=== PATIENT | female | born 1960 | race Caucasian/White ===

== ENCOUNTER → 2016-03-16 | Outpatient (CLI) | payer BC, OTHER ==
[2016-03-16 18:44] LABS: ALT/SGPT 51 U/L (12-78); BLOOD UREA NITROGEN 28 mg/dl (7-18); BUN/CREATININE RATIO 19.6 (10-20); CALCIUM 9.5 mg/dl (8.5-10.1); CARBON DIOXIDE 28 mmol/L (21-32); CHLORIDE 106 mmol/L (98-107); CHOLESTEROL 163 mg/dl (0-200); GLUCOSE 104 mg/dl (70-99); POTASSIUM 4.3 mmol/L (3.5-5.1); SODIUM 144 mmol/L (136-145); TRIGLYCERIDES 192 mg/dl (0-150); VERY LOW DENSITY LIPOPROT CALC 38 mg/dl
[2016-03-16 18:47] LABS: ALB/GLOB RATIO 1.1 (0.9-2); ALKALINE PHOSPHATASE 71 U/L (45-117); AST/SGOT 33 U/L (15-37); CHOLESTEROL/HDL RATIO 4.1; HDL CHOLESTEROL 40 mg/dl; LDL CHOLESTEROL CALCULATED 85 mg/dl
[2016-03-17 06:47] LABS: ESTIMATED AVERAGE GLUCOSE 157 mg/dl; HA1C FLAG Normal (Normal)
== END | disposition home or self-care (01) ==
LOC: C.LABSPEC 14:37
PROVIDERS: ATTEND Family Medicine
DX: E11.9 Type 2 diabetes mellitus without complications (principal); I10 Essential (primary) hypertension

== ENCOUNTER → 2016-06-14 | Outpatient (CLI) | payer BC, OTHER ==
[2016-06-14 13:44] LABS: BASO % 0.3 %; BASO ABS # 0.02 K/uL (0-0.2); COMPLETE YES; EOS % 2.2 %; HEMATOCRIT 41.2 % (37-47); IG% 0.3 %; LYMPH % 21.9 %; LYMPH ABS # 1.48 K/uL (1.2-3.4); MEAN CELL VOLUME 84.9 fL (80-100); MEAN CORPUSCULAR HEMOGLOBIN 29.3 pg (25-34); MEAN CORPUSCULAR HGB CONC 34.5 g/dl (32-36); MEAN PLATELET VOLUME 9.6 fL (7.4-10.4); NEUT % 68.3 %; PLATELET COUNT 194 K/uL (130-400); RED BLOOD COUNT 4.85 M/uL (4.2-5.4); WHITE BLOOD COUNT 6.76 K/uL (4.8-10.8)
[2016-06-14 14:05] LABS: ESTIMATED AVERAGE GLUCOSE 126 mg/dl; HA1C FLAG Normal (Normal)
[2016-06-14 14:21] LABS: ALKALINE PHOSPHATASE 82 U/L (45-117); ALT/SGPT 33 U/L (12-78); AST/SGOT 19 U/L (15-37); BLOOD UREA NITROGEN 19 mg/dl (7-18); BUN/CREATININE RATIO 21.4 (10-20); CALCIUM 9.4 mg/dl (8.5-10.1); CARBON DIOXIDE 30 mmol/L (21-32); CHLORIDE 105 mmol/L (98-107); CHOLESTEROL 174 mg/dl (0-200); CHOLESTEROL/HDL RATIO 4.1; CREATININE 0.88 mg/dl (0.60-1.20); GLUCOSE 107 mg/dl (70-99); HDL CHOLESTEROL 42 mg/dl; LDL CHOLESTEROL CALCULATED 95 mg/dl; POTASSIUM 3.9 mmol/L (3.5-5.1); SODIUM 142 mmol/L (136-145); TRIGLYCERIDES 183 mg/dl (0-150); VERY LOW DENSITY LIPOPROT CALC 37 mg/dl
== END | disposition home or self-care (01) ==
LOC: C.LABSPEC 13:20
PROVIDERS: ATTEND Family Medicine
DX: E11.9 Type 2 diabetes mellitus without complications (principal); I10 Essential (primary) hypertension

== ENCOUNTER → 2016-07-20 | Outpatient (CLI) | payer BC, OTHER ==
[2016-07-20 19:20] LABS: BASO % 0.1 %; BASO ABS # 0.01 K/uL (0-0.2); COMPLETE YES; EOS % 1.7 %; HEMATOCRIT 40.8 % (37-47); IG% 0.1 %; LYMPH ABS # 1.46 K/uL (1.2-3.4); MEAN CELL VOLUME 86.6 fL (80-100); MEAN CORPUSCULAR HEMOGLOBIN 29.5 pg (25-34); MEAN CORPUSCULAR HGB CONC 34.1 g/dl (32-36); MEAN PLATELET VOLUME 10.1 fL (7.4-10.4); MONO % 7.3 %; NEUT % 69.8 %; PLATELET COUNT 182 K/uL (130-400); RED BLOOD COUNT 4.71 M/uL (4.2-5.4); WHITE BLOOD COUNT 6.94 K/uL (4.8-10.8)
[2016-07-20 19:37] LABS: ALT/SGPT 35 U/L (12-78); AST/SGOT 22 U/L (15-37); BLOOD UREA NITROGEN 17 mg/dl (7-18); CALCIUM 9.3 mg/dl (8.5-10.1); CARBON DIOXIDE 29 mmol/L (21-32); CHLORIDE 106 mmol/L (98-107); CREATININE 0.79 mg/dl (0.60-1.20); GLUCOSE 115 mg/dl (70-99); POTASSIUM 3.8 mmol/L (3.5-5.1); SODIUM 142 mmol/L (136-145)
[2016-07-20 19:40] LABS: ALKALINE PHOSPHATASE 84 U/L (45-117); CHOLESTEROL 184 mg/dl (0-200); HDL CHOLESTEROL 46 mg/dl; LDL CHOLESTEROL CALCULATED 101 mg/dl; TRIGLYCERIDES 183 mg/dl (0-150); VERY LOW DENSITY LIPOPROT CALC 37 mg/dl
[2016-07-21 07:30] LABS: ESTIMATED AVERAGE GLUCOSE 134 mg/dl; HA1C FLAG Normal (Normal)
== END | disposition home or self-care (01) ==
LOC: C.LABSPEC 18:05
PROVIDERS: ATTEND Family Medicine
DX: E11.9 Type 2 diabetes mellitus without complications (principal); I10 Essential (primary) hypertension

== ENCOUNTER → 2017-01-25 | Outpatient (CLI) | payer BC, OTHER ==
[2017-01-25 18:22] LABS: BASO % 0.3 %; BASO ABS # 0.02 K/uL (0-0.2); COMPLETE YES; EOS % 2.3 %; HEMATOCRIT 39.6 % (37-47); IG% 0.5 %; LYMPH % 23.9 %; LYMPH ABS # 1.58 K/uL (1.2-3.4); MEAN CELL VOLUME 90.4 fL (80-100); MEAN CORPUSCULAR HEMOGLOBIN 31.1 pg (25-34); MEAN CORPUSCULAR HGB CONC 34.3 g/dl (32-36); MEAN PLATELET VOLUME 10.2 fL (7.4-10.4); MONO % 7.9 %; NEUT % 65.1 %; PLATELET COUNT 171 K/uL (130-400); RED BLOOD COUNT 4.38 M/uL (4.2-5.4); WHITE BLOOD COUNT 6.61 K/uL (4.8-10.8)
[2017-01-25 18:56] LABS: ALT/SGPT 45 U/L (12-78); AST/SGOT 27 U/L (15-37); BLOOD UREA NITROGEN 15 mg/dl (7-18); CALCIUM 9.1 mg/dl (8.5-10.1); CARBON DIOXIDE 26 mmol/L (21-32); CHLORIDE 105 mmol/L (98-107); CREATININE 0.83 mg/dl (0.60-1.20); GLUCOSE 149 mg/dl (70-99); POTASSIUM 3.8 mmol/L (3.5-5.1); SODIUM 139 mmol/L (136-145)
[2017-01-25 18:58] LABS: ALKALINE PHOSPHATASE 87 U/L (45-117)
[2017-01-26 06:00] LABS: ESTIMATED AVERAGE GLUCOSE 151 mg/dl; HA1C FLAG Normal (Normal)
== END | disposition home or self-care (01) ==
LOC: C.LABSPEC 17:41
PROVIDERS: ATTEND Family Medicine
DX: E11.9 Type 2 diabetes mellitus without complications (principal)